=== PATIENT | female | born 1975 | race Caucasian/White ===

== ENCOUNTER → 2023-06-14 | Emergency (ER) | payer OTHER ==
--- NOTE | 2023-06-14 12:25 | RAD REPORT ---
EXAM DESCRIPTION: RAD - Knee Left 3 View - 06/14/2023 12:18 pm CLINICAL HISTORY: Left knee pain FINDINGS: No fracture or dislocation is seen.
--- NOTE | 2023-06-14 12:43 | EDPHYS ---
Physician Documentation [facility] Name: Bria Moss Age: 48 yrs Sex: Female : 1975 Arrival Date: 06/14/2023 Time: 11:20 Bed 11 Private MD: ED Physician Fredrick Obrien HPI: 06/13 11:43 This 48 yrs old Female presents to ER via Ambulatory with complaints of Knee Pain. rn 11:43 The patient presents with an injury, pain, that is acute. The complaints affect the rn left knee. Onset: The symptoms/episode began/occurred 2 day(s) ago. Modifying factors: The symptoms are alleviated by nothing. the symptoms are aggravated by movement, weight bearing, bending knee. Associated signs and symptoms: Pertinent negatives fever, warmth, weakness. Severity of symptoms: At their worst the symptoms were moderate, in the emergency department the symptoms have improved. The patient has not experienced similar symptoms in the past. Patient reports twisted left knee 2 days ago, knee was flexed and then rotated to the right. Patient reports mild swelling and painful weightbearing. No direct fall or trauma to the knee. No weakness of lower extremity.. Historical: - Allergies: 11:38 No Known Allergies; ap3 - Home Meds: 11:38 None [Active]; ap3 - PMHx: 11:38 None; ap3 - Immunization history:: Client reports receiving the 2nd dose of the Covid vaccine. - Social history:: Smoking status: Patient denies any tobacco usage or history of. Patient uses street drugs, marijuana. - Family history:: not pertinent. - Hospitalizations: : No recent hospitalization is reported. ROS: 11:43 Constitutional: Negative for fever, chills, and weight loss, MS/Extremity: Positive for rn left knee injury and pain Skin: Negative for injury, rash, and discoloration, Exam: 11:43 Constitutional: This is a well developed, well nourished patient who is awake, alert, rn and in no acute distress. MS/ Extremity: Pulses equal, no cyanosis. Neurovascular intact. Mild tenderness anterior inferior knee. No patellar tenderness. No appreciable knee effusion. No skin changes. Able to actively flex and extend knee with minimal pain. Patient ambulatory to room without assistance Vital Signs: 11:34 BP 124 / 75; Pulse 71; Resp 17; Temp 97.4; Pulse Ox 100% ; Weight 97.52 kg; Height 5 ap3 ft. 2 in. ; Pain 10/10; 12:54 BP 120 / 76; Pulse 68; Resp 16; Pulse Ox 100% on R/A; mb9 11:34 Body Mass Index 39.32 (97.52 kg, 157.48 cm) ap3 11:34 Pain Scale: Adult ap3 MDM: 11:32 Patient medically screened. rn 12:42 Differential diagnosis: closed fracture, Sprain, strain. Data reviewed: vital signs, rn nurses notes, radiologic studies, plain films, and as a result, I will discharge patient. Counseling: I had a detailed discussion with the patient and/or guardian regarding the historical points, exam findings, and any diagnostic results supporting the discharge/admit diagnosis, radiology results, the need for outpatient follow up, to return to the emergency department if symptoms worsen or persist or if there are any questions or concerns that arise at home. Special discussion: I discussed with the patient/guardian in detail that at this point there is no indication for admission to the hospital. It is understood, however, that if the symptoms persist or worsen the patient needs to return immediately for re-evaluation. Further emergent ED testing is not indicated at this point in time. I discussed with the patient/guardian in detail the need to arrange with the PCP or specialist further outpatient testing, MRI. 06/13 11:39 Order name: XRAY Knee LEFT 3 view rn 06/13 12:25 Order name: RAD; Complete Time: 12:42 EDMS Administered Medications: No medications were administered Disposition Summary: 06/14/23 12:43 Discharge Ordered Notes: Location: Home rn Problem: new rn Symptoms: have improved rn Condition: Stable rn Diagnosis - Sprain of unspecified site of left knee, initial encounter rn Followup: rn - With: Private Physician - When: As needed - Reason: Recheck today's complaints, Re-evaluation by your physician Discharge Instructions: - Discharge Summary Sheet rn - Knee Sprain, Adult rn Forms: - Medication Reconciliation Form rn - Thank You Letter rn - Antibiotic fraternity adviser - Prescription Opioid Use rn - Patient Portal Instructions rn - Leadership Thank You Letter rn Signatures: Dispatcher [employer] EDMS Fredrick Obrien MD MD rn Prokisch, Amanda, RN RN ap3
--- NOTE | 2023-06-14 12:43 | ER ---
Nurse's Notes [facility] Name: Bria Moss Age: 48 yrs Sex: Female : 1975 Arrival Date: 06/14/2023 Time: 11:20 Bed 11 Private MD: Diagnosis: Sprain of unspecified site of left knee, initial encounter Presentation: 06/13 11:34 Chief complaint: Patient states: she injured her left knee at work approx two days ago ap3 and is having a difficult time extending it. patient currently rates her pain as a 10/10 on the pain scale. Coronavirus screen: At this time, the client does not indicate any symptoms associated with coronavirus-19. Ebola Screen: No symptoms or risks identified at this time. Initial Sepsis Screen: Does the patient meet any 2 criteria? No. Patient's initial sepsis screen is negative. Does the patient have a suspected source of infection? No. Patient's initial sepsis screen is negative. Risk Assessment: Do you want to hurt yourself or someone else? Patient reports no desire to harm self or others. Onset of symptoms was June 11, 2023. 11:34 Method Of Arrival: Ambulatory ap3 11:34 Acuity: NIMA 4 ap3 Triage Assessment: 11:36 General: Appears in no apparent distress. Behavior is calm, cooperative, appropriate ap3 for age. Pain: Complains of pain in left knee Pain currently is 10 out of 10 on a pain scale. Pain began 2-3 days ago. Neuro: Level of Consciousness is awake, alert, obeys commands, Oriented to person, place, time, situation, Appropriate for age. Cardiovascular: Patient's skin is warm and dry. Respiratory: Airway is patent Respiratory effort is even, unlabored, Respiratory pattern is regular, symmetrical. Historical: - Allergies: 11:38 No Known Allergies; ap3 - Home Meds: 11:38 None [Active]; ap3 - PMHx: 11:38 None; ap3 - Immunization history:: Client reports receiving the 2nd dose of the Covid vaccine. - Social history:: Smoking status: Patient denies any tobacco usage or history of. Patient uses street drugs, marijuana. - Family history:: not pertinent. - Hospitalizations: : No recent hospitalization is reported. Screenin:39 [facility] ED Fall Risk Assessment (Adult) History of falling in the last 3 months, ap3 including since admission No falls in past 3 months (0 pts) Confusion or Disorientation No (0 pts) Intoxicated or Sedated No (0 pts) Impaired Gait Yes (1 pt) Mobility Assist Device Used No (0 pt) Altered Elimination No (0 pt) Score/Fall Risk Level 0 - 2 = Low Risk Oriented to surroundings, Maintained a safe environment, Educated pt \T\ family on fall prevention, incl call for assistance when getting out of bed, Assessed \T\ reinforced patient's understanding of fall precautions, Provided non-skid footwear, Hourly rounding (assess needs \T\ fall precautionary measures) done, Used ambulatory aids as needed (educated on \T\ assisted with). Abuse screen: Denies threats or abuse. Nutritional screening: No deficits noted. Tuberculosis screening: No symptoms or risk factors identified. Assessment: 12:10 General: Appears in no apparent distress. Behavior is calm, cooperative. Pain: mb9 Complains of pain in left knee Pain radiates to left leg Quality of pain is described as throbbing. Neuro: Henley Agitation-Sedation Scale (RASS): 0 - Alert and Calm Level of Consciousness is awake, alert, obeys commands, Oriented to person, place, time, situation, Appropriate for age. Cardiovascular: Patient's skin is warm and dry. Respiratory: Airway is patent Respiratory effort is even, unlabored, Respiratory pattern is regular, symmetrical. GI: No signs and/or symptoms were reported involving the gastrointestinal system. : No signs and/or symptoms were reported regarding the genitourinary system. EENT: No signs and/or symptoms were reported regarding the EENT system. Derm: Skin is pink, warm \T\ dry. Musculoskeletal: Range of motion: limited in left knee Swelling present in left knee. Vital Signs: 11:34 BP 124 / 75; Pulse 71; Resp 17; Temp 97.4; Pulse Ox 100% ; Weight 97.52 kg; Height 5 ap3 ft. 2 in. ; Pain 10/10; 12:54 BP 120 / 76; Pulse 68; Resp 16; Pulse Ox 100% on R/A; mb9 11:34 Body Mass Index 39.32 (97.52 kg, 157.48 cm) ap3 11:34 Pain Scale: Adult ap3 ED Course: 11:23 Patient arrived in ED. mr 11:32 Fredrick Obrien MD is Attending Physician. rn 11:36 Triage completed. ap3 11:37 Arm band placed on right wrist. ap3 11:39 Patient has correct armband on for positive identification. Adult w/ patient. ap3 12:11 Provided Education on: press call light when needing to use restroom. Client placed on mb9 continuous cardiac and pulse oximetry monitoring. NIBP monitoring applied. Door closed. Noise minimized. Warm blanket given. 12:11 No provider procedures requiring assistance completed. mb9 12:12 Soila Noble, RN is Primary Nurse. mb9 12:20 Wound care: ice pack applied. mb9 12:54 Patient did not have IV access during this emergency room visit. mb9 Administered Medications: No medications were administered Medication: 12:11 VIS not applicable for this client. mb9 Outcome: 12:43 Discharge ordered by MD. rn 12:54 Discharged to home ambulatory, with family, mb9 12:54 Condition: stable 12:54 Discharge instructions given to patient, family, Instructed on discharge instructions, follow up and referral plans. Demonstrated understanding of instructions, follow-up care, 12:54 Patient left the ED. mb9 Signatures: Soila Young, Reg Reg mr Fredrick Obrien MD MD rn Prokisch, Amanda, RN RN ap3 Soila Noble, STEFFANIE RN mb9 Corrections: (The following items were deleted from the chart) 11:36 11:34 Chief complaint: Patient states: she injured her knee at work approx two days ago ap3 and is having a difficult time extending it. patient currently rates her pain as a 10/10 on the pain scale. ap3
[2023-06-14 13:27] VITALS: BP 120/76; TEMP 97.4; O2SAT 100
== END ==
LOC: ER 11:20
DX: S83.92XA Sprain of unspecified site of left knee, initial encounter (principal)
CPT/HCPCS: 99283